=== PATIENT | female | born 1960 | race Caucasian/White ===

== ENCOUNTER 2017-03-13 13:15 | Emergency (ER) | payer SELFPAY ==
[~2017-03-13 13:15] MED LIST: Sodium Chloride 0.9% 1,000 ML BAG ONE
[2017-03-13 14:25] LABS: ALT (SGPT) 10 U/L (8-55); AST (SGOT) 15 U/L (5-34); Albumin 2.8 g/dL (3.5-5.0); Alkaline Phosphatase 73 U/L (40-150); Anion Gap 14 mmol/L (10-20); BUN (Urea Nitrogen) 14 mg/dL (9.8-20.1); Bilirubin, Total 0.7 mg/dL (0.2-1.2); Calc. Creatinine Clearance 0 mL/min (70-130); Calcium 8.2 mg/dL (7.8-10.44); Carbon Dioxide 20 mmol/L (22-29); Chloride 99 mmol/L (98-107); Estimated GFR-MDRD 54; Globulin 4.9 g/dL (2.4-3.5); Glucose 229 mg/dL (70-105); Protein, Total 7.7 g/dL (6.0-8.3); Sodium 130 mmol/L (136-145)
[2017-03-13 14:27] LABS: Band 12 % (5-11); Hemoglobin 9.3 g/dL (12.0-16.0); Lymphocytes 22 % (21-51); MDiff Complete? YES; Mean Corpuscular HGB CONC 33.4 g/dL (32.0-36.0); Mean Corpuscular Hemoglobin 30.8 pg (27.0-31.0); Mean Corpuscular Volume 92.2 fl (81.0-99.0); Mean Platelet Volume 7.1 fL (7.4-10.4); Monocytes 10 % (0-10); Neutrophil 56 % (42-75); PLT Morphology Comment Appears Adequate; Platelet Count 184 thou/uL (130-400); RBC Distribution Width 12.7 % (11.5-14.5); Red Blood Cell (RBC) Count 3.01 mill/uL (4.20-5.40)
[2017-03-13 15:51] LABS: Bilirubin Negative (Negative); Blood, Urine Negative (Negative); Clarity Hazy (Clear); Glucose, Urine (Dipstick) 500 mg/dL (Negative); Leukocyte Negative (Negative); Nitrite Negative (Negative); Protein, Urine (Dipstick) 30 mg/dL (Neg-Trace); RBC/HPF 0-3 HPF (0-3); Specific Gravity, Urine 1.015 (1.005-1.030); Urobilinogen 0.2 mg/dL (0.2-1.0); WBC/HPF 0-3 HPF (0-3)
[2017-03-13 15:52] LABS: Bacteria/HPF Rare-Few HPF (None Seen); Yeast-All Forms 1+ HPF (None Seen)
[2017-03-13] MEDS ORDERED: metroNIDAZOLE 250 MG TAB ONE (17:21)
== END 2017-03-13 17:45 | disposition home or self-care (01) ==
LOC: MADERS 13:15
DX: R19.7 Diarrhea, unspecified (principal); I11.0 Hypertensive heart disease with heart failure; I50.9 Heart failure, unspecified; E11.9 Type 2 diabetes mellitus without complications; Z79.891 Long term (current) use of opiate analgesic; Z79.899 Other long term (current) drug therapy; Z79.84 Long term (current) use of oral hypoglycemic drugs
CPT/HCPCS: 51701; 80053; 81003; 81015; 82274; 83630; 85025; 87040; 87324; 87449; 96360; 96361; A4353; J7050

== ENCOUNTER 2018-01-06 13:15 | Emergency (ER) | payer OTHER, SELFPAY ==
[~2018-01-06 13:15] MED LIST changes: +Iopamidol 370 76% 100 ML VIAL ONE
[2018-01-06 14:21] LABS: Bilirubin Negative (Negative); Blood, Urine Negative (Negative); Glucose, Urine (Dipstick) >=1000 mg/dL (Negative); Leukocyte Negative (Negative); Nitrite Negative (Negative); Protein, Urine (Dipstick) Negative (Neg-Trace); Urobilinogen 0.2 mg/dL (0.2-1.0)
[2018-01-06 14:22] LABS: Clarity Hazy (Clear); RBC/HPF 0-3 HPF (0-3)
[2018-01-06] MEDS ORDERED: Ketorolac Tromethamine 30 MG/ML VIAL ONE (14:22)
[2018-01-06] MEDS ORDERED: Ondansetron HCl/PF 4 MG/2 ML Vial ONE (14:22)
[2018-01-06 14:23] LABS: Bacteria/HPF Rare-Few HPF (None Seen); WBC/HPF 0-3 HPF (0-3)
[2018-01-06 14:23] LABS: #Basophils 0.1 thou/uL (0.0-0.2); #Eosinphils 0.1 thou/uL (0.0-0.7); #Lymphocytes 2.1 thou/uL (1.20-3.40); #Monocytes 0.4 thou/uL (0.11-0.59); %Basophils 0.9 % (0.0-1.0); %Eosinophils 1.5 % (0.0-10.0); %Lymphocytes 31.1 % (21.0-51.0); %Monocytes 5.5 % (0.0-10.0); Hemoglobin 13.4 g/dL (12.0-16.0); Mean Corpuscular HGB CONC 36.1 g/dL (32.0-36.0); Mean Corpuscular Hemoglobin 31.6 pg (27.0-31.0); Mean Corpuscular Volume 87.6 fl (81.0-99.0); Mean Platelet Volume 6.6 fL (7.4-10.4); Platelet Count 148 thou/uL (130-400); Red Blood Cell (RBC) Count 4.25 mill/uL (4.20-5.40); White Blood Cell (WBC) Count 6.6 thou/uL (4.8-10.8)
[2018-01-06] MEDS ORDERED: Metoclopramide HCl 10 MG/2 ML VIAL ONE (14:24)
[2018-01-06 14:36] LABS: ALT (SGPT) 10 U/L (8-55); AST (SGOT) 14 U/L (5-34); Albumin 3.6 g/dL (3.5-5.0); Alkaline Phosphatase 110 U/L (40-150); Anion Gap 13 mmol/L (10-20); BUN (Urea Nitrogen) 18 mg/dL (9.8-20.1); Bilirubin, Total 0.4 mg/dL (0.2-1.2); CK (CPK) 29 U/L (29-168); Calc. Creatinine Clearance 0 mL/min (70-130); Calcium 10.3 mg/dL (7.8-10.44); Carbon Dioxide 28 mmol/L (22-29); Chloride 97 mmol/L (98-107); Estimated GFR-MDRD 70; Glucose 368 mg/dL (70-105); Lipase 26 U/L (8-78); Potassium 3.3 mmol/L (3.5-5.1); Protein, Total 8.6 g/dL (6.0-8.3); Sodium 135 mmol/L (136-145)
--- NOTE | 2018-01-06 14:53 | RAD ---
CHEST 1 VIEW: Date: 01/06/18 HISTORY: Abdominal pain and chest pain. COMPARISON: 06/22/17. FINDINGS: Cardiac silhouette is magnified by projection. Pulmonary vasculature is upper limits of normal. Media stinum is midline with aortic calcification. No lobar consolidation or evidence of free subdiaphragma tic gas. IMPRESSION: 1. Atherosclerosis. 2. No active cardiopulmonary abnormalities are demonstrated. POS: [facility]
[2018-01-06] MEDS ORDERED: MORPHINE 10 MG/ML SYRINGE ONE (15:53)
--- NOTE | 2018-01-06 17:33 | CT ---
CT ABDOMEN AND PELVIS WITH IV CONTRAST: HISTORY: Abdominal pain. COMPARISON: 12/15/2011 FINDINGS: The lung bases are clear. The liver, spleen, kidneys, adrenal glands, and pancreas are within normal limits. Calcification is present within the arterial structures. Degenerative changes of the lumba r spine. Lack of oral contrast limits evaluation of the bowel. No evidence of obstruction. Subtle circumfere ntial wall thickening of the hepatic flexure of the colon is present with stranding in the adjacent f lat. No free air or free fluid. Scattered diverticula are present. IMPRESSION: 1. Splenic flexure colon abnormality is favored to represent inflammation rather than neoplasm. Thi s may be related to noncomplicated diverticulitis. Please consider endoscopic evaluation after medic al treatment. 2. Atherosclerosis. POS: [facility]
[2018-01-06] MEDS ORDERED: metroNIDAZOLE 250 MG TAB ONE (17:59)
[2018-01-06] MEDS ORDERED: Ciprofloxacin 500 MG TAB ONE (17:59)
== END 2018-01-06 18:10 | disposition home or self-care (01) ==
LOC: MADERS 13:15
DX: K57.92 Diverticulitis of intestine, part unspecified, without perforation or abscess without bleeding (principal); I11.0 Hypertensive heart disease with heart failure; I50.9 Heart failure, unspecified; E11.9 Type 2 diabetes mellitus without complications; E66.9 Obesity, unspecified; F17.210 Nicotine dependence, cigarettes, uncomplicated; Z79.84 Long term (current) use of oral hypoglycemic drugs; Z79.899 Other long term (current) drug therapy
CPT/HCPCS: 36415; 71045; 74177; 80053; 81001; 82150; 82550; 83690; 83880; 85025; 85652; 87040; 87077; 87086; 87186; 96361; 96374; 96375; J1885; J2270; J2405; J2765; J7050

== ENCOUNTER 2018-01-14 13:18 | Emergency (ER) | payer OTHER, SELFPAY ==
[~2018-01-14 13:18] MED LIST changes: +Sodium Chloride 0.9% 100 ML BAG ONE
[2018-01-14] MEDS ORDERED: Ondansetron ODT 4 MG TAB ONE (14:03)
[2018-01-14] MEDS ORDERED: Morphine 10 MG/ML VIAL ONE ×2 (14:09→17:25)
[2018-01-14 14:34] LABS: #Eosinphils 0.1 thou/uL (0.0-0.7); #Lymphocytes 1.7 thou/uL (1.20-3.40); #Monocytes 0.3 thou/uL (0.11-0.59); %Basophils 0.4 % (0.0-1.0); %Eosinophils 2.2 % (0.0-10.0); %Lymphocytes 27.5 % (21.0-51.0); %Neutrophils 64.9 % (42.0-75.0); Hemoglobin 12.5 g/dL (12.0-16.0); Mean Corpuscular HGB CONC 34.5 g/dL (32.0-36.0); Mean Platelet Volume 6.3 fL (7.4-10.4); Platelet Count 173 thou/uL (130-400); RBC Distribution Width 12.9 % (11.5-14.5); Red Blood Cell (RBC) Count 4.16 mill/uL (4.20-5.40); White Blood Cell (WBC) Count 6.1 thou/uL (4.8-10.8)
[2018-01-14 14:53] LABS: ALT (SGPT) 13 U/L (8-55); AST (SGOT) 18 U/L (5-34); Alkaline Phosphatase 83 U/L (40-150); Anion Gap 13 mmol/L (10-20); BUN (Urea Nitrogen) 8 mg/dL (9.8-20.1); Bilirubin, Total 0.4 mg/dL (0.2-1.2); Calc. Creatinine Clearance 0 mL/min (70-130); Calcium 8.3 mg/dL (7.8-10.44); Carbon Dioxide 21 mmol/L (22-29); Chloride 107 mmol/L (98-107); Estimated GFR-MDRD 83; Globulin 3.9 g/dL (2.4-3.5); Glucose 250 mg/dL (70-105); Lipase 21 U/L (8-78); Potassium 3.6 mmol/L (3.5-5.1); Protein, Total 6.9 g/dL (6.0-8.3); Sodium 137 mmol/L (136-145)
[2018-01-14 14:56] LABS: CKMB 1.4 ng/mL (0-6.6); Troponin I Less than 0.010 ng/mL (< 0.028)
[2018-01-14 15:45] LABS: Bilirubin Negative (Negative); Blood, Urine Negative (Negative); Clarity Clear (Clear); Glucose, Urine (Dipstick) 250 mg/dL (Negative); Leukocyte Negative (Negative); Nitrite Negative (Negative); Protein, Urine (Dipstick) Negative (Neg-Trace); Urobilinogen 0.2 mg/dL (0.2-1.0); pH, Urine 6.5 (5.0-9.0)
[2018-01-14] MEDS ORDERED: Piperacillin/Tazobactam 3.375 GM VIAL ONE (17:25)
--- NOTE | 2018-01-14 17:40 | CT ---
ABDOMEN AND PELVIS CT SCAN WITH IV CONTRAST: HISTORY: A 57-year-old female with a history of abdominal pain and distention for two days. Prior history of diverticulitis. COMPARISON: 01/06/2018 FINDINGS: The lung bases appear clear. The liver has slight nodularity to its margin but no focal liver masses . The common bile duct is mildly dilated, up to 0.8 cm, without evidence for intrahepatic ductal dil atation. The gallbladder is moderately distended but has a thin wall and does not appear to have any associated pericholecystic fat stranding. The pancreas appears within normal limits, as does the sp easton and adrenal glands. The kidneys show no evidence for renal calculus or acute obstruction. N o CT evidence for acute appendicitis. There is again noted to be some pericolonic fat stranding in t he region of the splenic flexure with some associated splenic wall thickening, which does not appear significantly worse when compared to the prior study. No abscess, adenopathy, or abnormal fluid jennifer ection within the abdomen or pelvis. There appears to be some anterolisthesis of L4 on L5 with some associated spinal stenosis. IMPRESSION: 1. Somewhat distended gallbladder, measuring approximately 11 cm in maximum length and approximately 4.8 cm transversely, without evidence for significant gallbladder wall thickening or pericholecystic fat stranding or fluid. 2. Mildly dilated common bile duct at 0.8 cm. Both the common bile duct and the gallbladder have be come more dilated when compared to the prior 01/06/2018 study. Consideration for a follow-up gallbla dder ultrasound might be of benefit. 3. The liver margins appear slightly nodular, but no evidence of focal liver masses. 4. Persistent focal wall thickening of the splenic flexure, possibly still include that of acute div erticulitis versus underlying neoplastic mass. A follow-up nonemergent colonoscopy is suggested, onc e the acute diverticulitis symptoms have completely resolved, to rule out the possibility of an under lying malignancy. 5. Other findings as above. POS: [facility]
== END 2018-01-14 17:55 | disposition short-term general hospital (02) ==
LOC: MADERS 13:18
DX: K57.92 Diverticulitis of intestine, part unspecified, without perforation or abscess without bleeding (principal); K82.8 Other specified diseases of gallbladder; I11.0 Hypertensive heart disease with heart failure; I50.9 Heart failure, unspecified; E11.9 Type 2 diabetes mellitus without complications; Z79.84 Long term (current) use of oral hypoglycemic drugs; Z79.899 Other long term (current) drug therapy
CPT/HCPCS: 36415; 74177; 80053; 81003; 82553; 83605; 83690; 84484; 85025; 96374; 96375; J2270; J2543; J7050; Q0162

== ENCOUNTER 2018-02-12 12:16 | Outpatient (CLI) | payer OTHER ==
--- NOTE | 2018-02-12 13:32 | RAD ---
FOUR VIEWS RIGHT WRIST: History: Patient hit a wall yesterday. Pain. Difficulty moving fingers. Comparison: None. FINDINGS: Intercarpal and radiocarpal joint spaces preserved. No fracture. IMPRESSION: Unremarkable four views right wrist. POS: [facility]
== END 2018-02-12 12:17 | disposition home or self-care (01) ==
LOC: MADRAD 12:16
PROVIDERS: ATTEND Family Medicine
DX: F32.1 Major depressive disorder, single episode, moderate (principal)

== ENCOUNTER 2018-02-26 11:28 | Outpatient (CLI) | payer OTHER ==
--- NOTE | 2018-02-26 13:36 | RAD ---
RIGHT SHOULDER 3 VIEWS: Date: 02/26/18 CLINICAL HISTORY: Chronic shoulder pain without reported injury. FINDINGS: There is mild to moderate osteoarthritis in the right AC joint. No fracture or dislocation of the rig ht shoulder. IMPRESSION: No acute osseous abnormality. POS: [facility]
== END 2018-02-26 11:29 | disposition home or self-care (01) ==
LOC: MADRAD 11:28
PROVIDERS: ATTEND Family Medicine
DX: M25.511 Pain in right shoulder (principal)

== ENCOUNTER 2019-08-11 09:39 | Emergency (ER) | payer OTHER, SELFPAY | END 2019-08-11 10:43 | disposition home or self-care (01) | LOC: MADERS 09:39 | DX: M54.5 Low back pain (principal); I11.0 Hypertensive heart disease with heart failure; I50.9 Heart failure, unspecified; E11.9 Type 2 diabetes mellitus without complications; E66.9 Obesity, unspecified; F17.210 Nicotine dependence, cigarettes, uncomplicated; Z79.899 Other long term (current) drug therapy; Z79.84 Long term (current) use of oral hypoglycemic drugs | CPT/HCPCS: 99281 ==